=== PATIENT | male | born 1980 | race African-American/Black ===

== ENCOUNTER 2017-05-26 14:26 | Emergency (ER) | payer SELFPAY ==
[~2017-05-26] VITALS: Ht 175.3 cm; Wt 99.8 kg
[2017-05-26 14:36] VITALS: BP 134/81
--- NOTE | 2017-05-26 15:09 | RAD ---
CT of the head without contrast, 05/26/2017: History: Headache The ventricles are within normal limits in size. There is no shift of the midline structures. There is no evidence of acute intracranial hemorrhage or mass effect. There is complete opacification of both frontal sinuses, partial opacification of both ethmoid sinuses and nearly complete opacification of the visualized portions of both maxillary sinuses. There is mild mucosal thickening in the right sphenoid sinus. IMPRESSION: 1. No acute intracranial abnormality is detected. 2. Moderate bilateral paranasal sinusitis PQRS Compliance Statement: One or more of the following individualized dose reduction techniques were utilized for this examination: 1. Automated exposure control 2. Adjustment of the mA and/or kV according to patient size 3. Use of iterative reconstruction technique
[2017-05-26] MEDS ORDERED: NAPR500T8 PO (15:57)
[2017-05-26] MEDS ORDERED: CYCL10TA2 PO (15:57)
[2017-05-26] MEDS ORDERED: AMOX1TAB58 PO (15:57)
--- NOTE | 2017-05-26 15:58 | PHYS DOC ---
Past Medical History Past Medical History: Hyperthyroid Past Surgical History: No Surgical History Alcohol Use: None Drug Use: None Adult General Chief Complaint Chief Complaint: HEADACHE HPI HPI Patient is a 36 year old male who presents with 7 out of 10 throbbing intermittent right temporal headaches that have been present for one week. Patient states his had similar headaches but not as long. Patient denies any fever. Denies any photophobia. Denies any nausea vomiting. He states he has history of hypothyroidism and has not taken medication for years. He states he has not been able to see a PCP because he has not been able to get time off to go see one. Patient denies this being the worst headache in his life. Review of Systems Review of Systems Constitutional: Denies fever or chills [] Eyes: Denies change in visual acuity, redness, or eye pain [] HENT: Denies nasal congestion or sore throat [] Respiratory: Denies cough or shortness of breath [] Cardiovascular: No additional information not addressed in HPI [] GI: Denies abdominal pain, nausea, vomiting, bloody stools or diarrhea [] : Denies dysuria or hematuria [] Musculoskeletal: Denies back pain or joint pain [] Integument: Denies rash or skin lesions [] Neurologic: headache, Endocrine: Denies polyuria or polydipsia [] Allergies Allergies Allergies Coded Allergies Type Severity Reaction Last Updated Verified No Known Drug Allergies 01/26/14 No Physical Exam Physical Exam Constitutional: Well developed, well nourished, no acute distress, non-toxic appearance. [] HENT: Normocephalic, atraumatic, bilateral external ears normal, oropharynx moist, no oral exudates, nose normal. [] Eyes: PERRLA, EOMI, conjunctiva normal, no discharge. [] Neck: Normal range of motion, no tenderness, supple, no stridor. [] Cardiovascular:Heart rate regular rhythm, no murmur [] Lungs & Thorax: Bilateral breath sounds clear to auscultation [] Abdomen: Bowel sounds normal, soft, no tenderness, no masses, no pulsatile masses. [] Skin: Warm, dry, no erythema, no rash. [] Back: No tenderness, no CVA tenderness. [] Extremities: No tenderness, no cyanosis, no clubbing, ROM intact, no edema. [] Neurologic: Alert and oriented X 3, normal motor function, normal sensory function, no focal deficits noted. Cranial nerves II through XII intact Psychologic: Affect normal, judgement normal, mood normal. [] Current Patient Data Vital Signs Vital Signs Date Time Temp Pulse Resp B/P (MAP) Pulse Ox O2 Delivery O2 Flow Rate FiO2 05/26/17 14:36 98.1 80 20 134/81 (98) 97 Room Air 98.1 EKG EKG [] Radiology/Procedures Radiology/Procedures []PROCEDURE: CT HEAD WO CONTRAST CT of the head without contrast, 05/26/2017: History: Headache The ventricles are within normal limits in size. There is no shift of the midline structures. There is no evidence of acute intracranial hemorrhage or mass effect. There is complete opacification of both frontal sinuses, partial opacification of both ethmoid sinuses and nearly complete opacification of the visualized portions of both maxillary sinuses. There is mild mucosal thickening in the right sphenoid sinus. IMPRESSION: 1. No acute intracranial abnormality is detected. 2. Moderate bilateral paranasal sinusitis PQRS Compliance Statement: One or more of the following individualized dose reduction techniques were utilized for this examination: 1. Automated exposure control 2. Adjustment of the mA and/or kV according to patient size 3. Use of iterative reconstruction technique Course & Med Decision Making Course & Med Decision Making Pertinent Labs and Imaging studies reviewed. (See chart for details) Patient is in the ED with a headache for one week. CT scan of the head was negative for acute findings. CT was noted for sinusitis. Patient was discharged with Augmentin. Discharged with Flexeril and naproxen for the headache. Encouraged follow-up with her PCP as soon as possible, provided return precautions and discharged in stable condition. Dragon Disclaimer Dragon Disclaimer This electronic medical record was generated, in whole or in part, using a voice recognition dictation system. Departure Departure Impression: Primary Impression: Headache Additional Impression: Sinusitis, acute Disposition: 01 HOME, SELF-CARE Condition: STABLE Referrals: NO PCP (PCP) Follow-up with your doctor as soon as possible Patient Instructions: General Headache Without Cause, [id number], Sinusitis Additional Instructions: You were seen for a headache. Your Ct shows you have a sinus infection. Please complete your antibiotics. Follow up with your doctor as soon as possible. Scripts Naproxen (NAPROXEN) 500 Mg Tablet.dr 1 TAB PO BID, #60 TAB 2 Refills Prov: CHAYA ISABEL KAVITA 05/26/17 Cyclobenzaprine Hcl (CYCLOBENZAPRINE HCL) 10 Mg Tablet 1 TAB PO TID, #30 TAB Prov: CHAYA ISABEL KAVITA 05/26/17 Amoxicillin/Potassium Clav (AUGMENTIN 500-125 TABLET) 1 Each Tablet 1 TAB PO BID, #20 TAB Prov: MARGARITACHAYA GARY KAVITA 05/26/17 Problem Qualifiers Primary Impression: Headache Headache type: unspecified Headache chronicity pattern: unspecified pattern Intractability: not intractable Qualified Codes: R51 - Headache Additional Impression: Sinusitis, acute Sinusitis location: unspecified location Recurrence: non-recurrent Qualified Codes: J01.90 - Acute sinusitis, unspecified CHAYA ISABEL KAVITA May 26, 2017 15:57
== END 2017-05-26 15:55 | disposition home or self-care (01) ==
LOC: ER 14:26
DX: R51 Headache (principal); J01.90 Acute sinusitis, unspecified; E05.90 Thyrotoxicosis, unspecified without thyrotoxic crisis or storm
CPT/HCPCS: 70450; 99284-25